=== PATIENT | male | born 1970 | race Caucasian/White ===

== ENCOUNTER 2017-01-22 16:43 | Emergency (ER) | payer MEDICAID, OTHER ==
[~2017-01-22] VITALS: Ht 180.3 cm; Wt 72.6 kg
[~2017-01-22 16:43] MED LIST: ALPR1TAB2 PO; GABA100C PO; GABA800T PO; NORT25CA5 PO
--- NOTE | 2017-01-22 17:17 | NUR ---
BB SELF TO ER, AMBULATORY TO ED BED 12 W/ C/O EPIGASTRIC PAIN THAT RADIATES TO BACK X 6 MONTHS. DENIES N/V/D. PT STS HE WAS DIAGNOSED BEFORE W/ ULCER. NAD VSS RR EVEN AND UNLABORED PENDING ER MD EVALUATION
[2017-01-22] MEDS ORDERED: MAG HYDROX/AL HYDROX/SIMETH 30 ML UDC ONE (17:39)
[2017-01-22] MEDS ORDERED: MAG HYDROX/AL HYDROX/SIMETH 30 ML UDC PO ONE (18:00)
[2017-01-22 18:15] LABS: BASOPHILS # (AUTO) 0.1 /CMM (0.0-0.2); BASOPHILS % (AUTO) 0.9 % (0.0-2.0); EOSINOPHILS # (AUTO) 0.1 /CMM (0.0-0.7); EOSINOPHILS % (AUTO) 1.3 % (0.0-6.0); HEMATOCRIT 41 % (39-51); HEMOGLOBIN 13.9 g/dL (13.5-17.5); LYMPHOCYTES # (AUTO) 2.4 /CMM (0.8-4.8); LYMPHOCYTES % (AUTO) 41.3 % (20.0-44.0); MEAN CORPUSCULAR HEMOGLOBIN 31 PG (26.0-33.0); MEAN CORPUSCULAR HGB CONC 34 g/dl (31.0-36.0); MEAN CORPUSCULAR VOLUME 90 fL (80-96); MONOCYTES # (AUTO) 0.4 /CMM (0.1-1.30); MONOCYTES % (AUTO) 6.4 % (2.0-12.0); NEUTROPHILS # (AUTO) 2.9 /CMM (1.8-8.9); NEUTROPHILS % (AUTO) 50.1 % (43.0-81.0); PLATELET COUNT (AUTO) 208 /CMM (150-450); RDW COEFFICIENT OF VARIATION 12.1 (11.5-15.0); RED BLOOD CELL COUNT(AUTO) 4.51 MIL/uL (4.5-6.0); WHITE BLOOD COUNT (AUTO) 5.9 K/uL (4.3-11.0)
[2017-01-22] MEDS ORDERED: CHLORDIAZEPOXIDE HCL 25 MG CAPSULE ONE (18:16)
[2017-01-22 18:29] LABS: CALCIUM, SERUM 9.2 mg/dL (8.5-10.1); CARBON DIOXIDE 32 mmol/L (21-32); CHLORIDE 104 mmol/L (98-107); CREATININE 0.9 mg/dL (0.6-1.3); GLUCOSE 103 mg/dL (74-106); POTASSIUM 3.6 mmol/L (3.5-5.1); SODIUM SERUM 138 mmol/L (136-145); UREA NITROGEN, BLOOD 3 mg/dL (7-18)
--- NOTE | 2017-01-22 18:30 | NUR ---
PULLED LIBRIUM FROM [employer] BY MISTAKE - PHARMACY AWARE. NO MD ORDER, MEDICATION NOT GIVEN. CHARGE NURSE AWARE.
[2017-01-22 18:35] LABS: ALANINE AMINOTRANSFERASE 35 U/L (12-78); ALBUMIN 4.1 g/dL (3.4-5.0); ALKALINE PHOSPHATASE 20 U/L (46-116); ASPARTATE AMINOTRANSFERASE 28 U/L (15-37); BILIRUBIN,DIRECT 0.1 mg/dL (0.0-0.2); BILIRUBIN,TOTAL 0.5 mg/dL (0.2-1.0); LIPASE 60 U/L (73-393); TOTAL PROTEIN, SERUM 6.9 g/dL (6.4-8.2)
[2017-01-22 18:36] LABS: TROPONIN I < 0.017 ng/mL (0.00-0.056)
--- NOTE | 2017-01-22 19:49 | NUR ---
Patient discharged to home in stable condition. Written and verbal after care instructions given. Patient verbalizes understanding of instruction.
[2017-01-22 19:50] VITALS: BP 129/78
== END 2017-01-22 19:51 | disposition home or self-care (01) ==
LOC: ER 16:45
DX: K29.70 Gastritis, unspecified, without bleeding (principal); B19.20 Unspecified viral hepatitis C without hepatic coma; F32.9 Major depressive disorder, single episode, unspecified; F41.0 Panic disorder [episodic paroxysmal anxiety]; Z87.11 Personal history of peptic ulcer disease
CPT/HCPCS: 36415; 80048-TC; 80076-TC; 83690-TC; 84484-TC; 85025-TC; A4606; Z7610

== ENCOUNTER 2017-02-12 21:02 | Emergency (ER) | payer MEDICAID ==
[~2017-02-12] VITALS: Ht 180.3 cm; Wt 68.0 kg
--- NOTE | 2017-02-12 21:30 | NUR ---
PT CAME IN WITH C/O URINARY RETENTION X3 HOURS SMOKE MARIJUANA TODAY. NOTED ANXIOUS. SEEN BY PA FOR EVAL. DENIES OTHER SYMTOMS. VSS. SAFETY AND COMFORT MEASURES PROVIDED. WILL MONITOR.
--- NOTE | 2017-02-12 21:50 | NUR ---
FC INITIATED. URINE SAMPLE OBTAINED, SENT.
[2017-02-12 22:49] LABS: APPEARANCE,URINE CLEAR (CLEAR); BILIRUBIN,URINE NEGATIVE (NEGATIVE); BLOOD, URINE 2+ Ery/uL (NEGATIVE); COLOR,URINE YELLOW (YELLOW); KETONES,URINE NEGATIVE (NEGATIVE); LEUKOCYTE ESTERASE ,URINE NEGATIVE (NEGATIVE); NITRITE, URINE NEGATIVE (NEGATIVE); PROTEIN,URINE NEGATIVE (NEGATIVE); UGLUCOSE NEGATIVE (NEGATIVE); UROBILINOGEN,URINE 0.2 EU/dL (0.2)
[2017-02-12 23:00] LABS: BACTERIA,URINE None seen /HPF (None Seen); SQUAMOUS EPITHELIAL CELL,UR Few /HPF (None Seen); WBC,URINE 0-2 /HPF (0-3)
--- NOTE | 2017-02-12 23:40 | NUR ---
PT PROVIDED WITH FC LEG BAG- TEACHINGS PROVIDED. PT AND FAMILY MEMBER VERBALIZES UNDERSTANDING. ALL QUESTIONS ANSWERED.
--- NOTE | 2017-02-12 23:53 | NUR ---
Patient discharged to home in stable condition. Written and verbal after care instructions given. Patient verbalizes understanding of instruction.
[2017-02-12 23:54] VITALS: BP 120/77
== END 2017-02-12 23:55 | disposition home or self-care (01) ==
LOC: ER 21:03
DX: R34 Anuria and oliguria (principal); B19.20 Unspecified viral hepatitis C without hepatic coma; F41.0 Panic disorder [episodic paroxysmal anxiety]; F32.9 Major depressive disorder, single episode, unspecified; M54.30 Sciatica, unspecified side
CPT/HCPCS: 51702; 81001; 99284; A4606; Z7610; 81000-TC

== ENCOUNTER 2017-07-29 12:19 | Emergency (ER) | payer MEDICAID, OTHER ==
[~2017-07-29] VITALS: Ht 177.8 cm; Wt 72.6 kg
[2017-07-29 12:43] VITALS: BP 131/95
--- NOTE | 2017-07-29 12:43 | NUR ---
UNABLE TO PEE SINCE THIS AM, BLADDER DISCOMFORT
--- NOTE | 2017-07-29 12:58 | NUR ---
DR REGALADO AT BEDSIDE FOR EVAL
== END 2017-07-29 13:07 | disposition home or self-care (01) ==
LOC: ER 12:22
DX: R33.9 Retention of urine, unspecified (principal); F41.0 Panic disorder [episodic paroxysmal anxiety]; F32.9 Major depressive disorder, single episode, unspecified; Z86.19 Personal history of other infectious and parasitic diseases
CPT/HCPCS: A4606; Z7610

== ENCOUNTER 2018-01-23 23:55 | Emergency (ER) | payer MEDICAID ==
[~2018-01-23] VITALS: Ht 180.3 cm; Wt 79.4 kg
--- NOTE | 2018-01-24 00:20 | NUR ---
PRESENTED DUE TO INABILITY TO URINATE X 3HRS.STATES IT HAPPENED BEFORE ABOUT A YEAR AGO AND NEEDED TO GO TO THE ER AND HAVE A ROBERTS CATHETER INSERTED.
[2018-01-24] MEDS ORDERED: LIDOCAINE 2% JEL UROJET 10 ML MM ONE ×2 (00:23→00:30)
--- NOTE | 2018-01-24 00:24 | NUR ---
NOTED 51 MLS VIA BLADDER SCANNER. TONO JARRETT MADE AWARE
--- NOTE | 2018-01-24 00:37 | NUR ---
URINE COLLECTED VIA ROBERTS CATH. 16FR F/C PLACED PER [employer]PAR[employer] SALES ASSOCIATE DEGRASSI
--- NOTE | 2018-01-24 00:45 | NUR ---
ROBERTS CATHETER INITIAL OUTPUT 700 ML .PATIENT STATES BEING RELIEVED AFTER ROBERTS INSERTED.
[2018-01-24 02:34] LABS: APPEARANCE,URINE CLEAR (CLEAR); BILIRUBIN,URINE NEGATIVE (NEGATIVE); BLOOD, URINE NEGATIVE Ery/uL (NEGATIVE); COLOR,URINE OTHER (YELLOW); KETONES,URINE NEGATIVE (NEGATIVE); LEUKOCYTE ESTERASE ,URINE NEGATIVE (NEGATIVE); NITRITE, URINE NEGATIVE (NEGATIVE); PH,URINE 6.5 (5.0-8.0); PROTEIN,URINE NEGATIVE (NEGATIVE); UGLUCOSE NEGATIVE (NEGATIVE); UROBILINOGEN,URINE 0.2 EU/dL (0.2)
--- NOTE | 2018-01-24 03:18 | NUR ---
Patient discharged to home in stable condition. Written and verbal after care instructions given. Patient verbalizes understanding of instruction. INSTRUCTED TO FOLLOW UP WITH URULOGIST DANELLE.PATIENT SENT HOME WITH ROBERTS CATHETER WITH LEG URINE BAG.REITERATED ON IMPORTANCE OF GOOD PERINEAL CARE.
[2018-01-24 03:22] VITALS: BP 116/78
== END 2018-01-24 03:23 | disposition home or self-care (01) ==
LOC: ER 01-24 00:02
DX: R33.9 Retention of urine, unspecified (principal); F19.10 Other psychoactive substance abuse, uncomplicated; F32.9 Major depressive disorder, single episode, unspecified; M54.30 Sciatica, unspecified side; F41.0 Panic disorder [episodic paroxysmal anxiety]; Z86.19 Personal history of other infectious and parasitic diseases
CPT/HCPCS: 51702; 81001; 99284; A4606; J3490; Z7610; 81000-TC